=== PATIENT | female | born 1975 | race African-American/Black ===

== ENCOUNTER 2016-11-06 17:28 | Emergency (ER) | payer SELFPAY ==
[~2016-11-06] VITALS: Ht 152.4 cm; Wt 98.0 kg
[2016-11-06 17:49] VITALS: BP 121/75
[2016-11-06] MEDS ORDERED: MOTRIN800 MG PO (18:27)
[2016-11-06] MEDS ORDERED: FLEXERIL10 MG PO (18:27)
== END 2016-11-06 19:09 | disposition home or self-care (01) ==
LOC: EME 17:28
DX: M54.31 Sciatica, right side (principal); F17.200 Nicotine dependence, unspecified, uncomplicated
CPT/HCPCS: 72100; 99281; 99284; J1885

== ENCOUNTER 2016-12-18 05:15 | Emergency (ER) | payer SELFPAY ==
[~2016-12-18] VITALS: Ht 152.4 cm; Wt 101.6 kg
[~2016-12-18 05:15] MED LIST: FLEXERIL10 MG PO; MOTRIN800 MG PO
[2016-12-18 05:50] LABS: MCHC 32.1 G/DL (30.0-36.0); MCV 87.3 FL (83-99); MEAN PLAT.VOLUME 10.4 uM^3 (9.5-12.4); PLATELET COUNT 217 K/uL (156-360); RBC DIS.WIDTH-CV 12.7 % (11.8-14.6); RBC DIS.WIDTH-SD 40.4 % (39-53); RED BLOOD COUNT 3.78 M/uL (3.80-5.20); WHITE BLOOD COUNT 3.8 K/uL (4.1-10.2)
[2016-12-18 06:09] LABS: CHLORIDE 108 mEq/L (99-109); POTASSIUM 3.6 mEq/L (3.7-5.4); SODIUM 140 mEq/L (136-147)
[2016-12-18 06:12] LABS: GLUCOSE 96 mg/dL (70-99)
[2016-12-18 06:13] LABS: ANION GAP 8 MEQ/L (2-14)
[2016-12-18 06:14] LABS: TOTAL BILIRUBIN 0.3 mg/dL (0.0-1.0)
[2016-12-18 06:15] LABS: ALKALINE PHOSPHATASE 84 IU/L (3-129); GFR ESTIMATE (CALCULATED) > 59 mL/min/
[2016-12-18 06:17] LABS: ADD MIUA? YES; BILIRUBIN NEGATIVE; BLOOD NEGATIVE; COLOR STRAW ((YELLOW)); GLUCOSE (STRIP) NEGATIVE; KETONES NEGATIVE; LEUKOCYTES TRACE; NITRITE NEGATIVE; PROTEIN (STRIP) NEGATIVE; SPECIFIC GRAVITY 1.009 (1.000-1.030); UROBILINOGEN 0.2 MG/DL (0.2-1.0)
[2016-12-18 06:17] LABS: DIRECT BILIRUBIN 0.1 mg/dL (0.0-0.3); UREA NITROGEN (BUN) 12 mg/dL (9-23)
[2016-12-18 06:19] LABS: LIPASE 27 U/L (1.0-51.0)
[2016-12-18 06:25] LABS: QUANTITATIVE HCG < 4.0 MIU/ML
[2016-12-18 06:29] LABS: BACTERIA NONE SEEN /HPF; EPITHELIAL CELLS RARE /HPF; MUCUS TRACE /LPF; RED BLOOD CELLS 0-5 /HPF (0-5); UCUL ADDED? NO; WHITE BLOOD CELLS 0-5 /HPF (0-5)
[2016-12-18] MEDS ORDERED: PERCOCET 5/31 TABLET PO (07:56)
[2016-12-18] MEDS ORDERED: FLEXERIL10 MG PO (07:56)
[2016-12-18 08:01] VITALS: BP 116/71
== END 2016-12-18 08:05 | disposition home or self-care (01) ==
LOC: EME 05:15
PROVIDERS: Emergency Medicine
DX: S39.012A Strain of muscle, fascia and tendon of lower back, initial encounter (principal); F17.200 Nicotine dependence, unspecified, uncomplicated
CPT/HCPCS: 80048; 80076; 81003; 83690; 84702; 85027; 99281; 99284; J1885

== ENCOUNTER 2017-01-26 08:08 | Emergency (ER) | payer SELFPAY ==
[~2017-01-26] VITALS: Ht 152.4 cm; Wt 100.3 kg
[~2017-01-26 08:08] MED LIST changes: +PERCOCET 5/31 TABLET PO
[2017-01-26 10:16] VITALS: BP 138/74
== END 2017-01-26 10:17 | disposition home or self-care (01) ==
LOC: EME 08:08
DX: R19.7 Diarrhea, unspecified (principal); Z87.891 Personal history of nicotine dependence
CPT/HCPCS: 87177; 87493; 87506; 99281; 99282